=== PATIENT | female | born 1935 | race Caucasian/White ===

== ENCOUNTER 2017-10-24 07:04 | Day surgery (SDC) | payer MEDICARE ==
[2017-10-23 10:48] LABS: BASOPHILS % (AUTO) 0.3 % (0-1); EOSINOPHILS # (AUTO) 0.1 X10'3 (0-0.9); EOSINOPHILS % (AUTO) 2.6 % (0-6); HEMATOCRIT 38.1 % (35.0-45.0); HEMOGLOBIN 12.9 g/dl (12.0-16.0); LYMPHOCYTES # (AUTO) 1.6 X10'3 (1.1-4.8); LYMPHOCYTES % (AUTO) 28.5 % (21-51); MEAN CORPUSCULAR HGB CONC 33.8 % (33.0-36.5); MEAN CORPUSCULAR VOLUME 88.7 FL (78-98); MEAN PLATELET VOLUME 8.3 FL (7.4-10.4); MONOCYTES # (AUTO) 0.5 X10'3 (0-0.9); MONOCYTES % (AUTO) 8.1 % (2-12); NEUTROPHILS # (AUTO) 3.4 X10'3 (1.8-7.7); NEUTROPHILS % (AUTO) 60.5 % (42-75); PLATELET COUNT 206 X10'3 (140-440); RED BLOOD COUNT 4.29 X10'6 (4.20-5.60); RED CELL DISTRIBUTION WIDTH 13.9 % (11.5-14.5); WHITE BLOOD COUNT 5.6 X10'3 (4.5-11.0)
[2017-10-23 10:57] LABS: ALBUMIN 3.5 G/DL (3.4-5.0); ANION GAP 10 (8-16); BLOOD UREA NITROGEN 30 MG/DL (7-18); BUN/CREATININE RATIO 23.1 (6.6-38.0); CALCIUM 9.3 MG/DL (8.5-10.1); CHLORIDE 107 MMOL/L (99-107); GLUCOSE 102 MG/DL (70-104); PARTIAL THROMBOPLASTIN TIME 27 SECONDS (22-32); POTASSIUM 4.1 MMOL/L (3.5-5.1); SODIUM 142 MMOL/L (135-145); TOTAL CARBON DIOXIDE 25.4 MMOL/L (24-32); eGFR 39 ML/MIN
[~2017-10-24] VITALS: Ht 147.3 cm; Wt 65.5 kg
[2017-10-24] VITALS (13 sets, daily range): BP systolic 123–142; BP diastolic 41–69
[~2017-10-24 07:04] MED LIST: ALPR-624 PO; ASPI-83 PO; CYAN25006 SL; D3 PO; ESOM20CA PO; LOVA40TA2 PO; MAGN250T29 PO; OLME1TAB18 PO; SYN0.088T PO; TRAM50TA2 PO; TRIA1TAB5 PO
[2017-10-24] MEDS ORDERED: diphenhydrAMINE 25mg capsule PO PRN (07:45)
[2017-10-24] MEDS ORDERED: LORazepam 0.5 MG tablet PO PRN (07:45)
[2017-10-24] MEDS ORDERED: normal saline 1000ml 1,000 ML IV SCH (07:45)
[2017-10-24] MEDS ORDERED: CALCIUM PO (08:14)
[2017-10-24] MEDS ORDERED: CHOL10002 PO (08:14)
[2017-10-24] MEDS ORDERED: MAGN400C PO (08:14)
[2017-10-24] MEDS ORDERED: NAPR-56 PO (08:14)
[2017-10-24] MEDS ORDERED: LIDOCAINE PATCH 4% TD (08:21)
[2017-10-24] MEDS ORDERED: fentaNYL/PF 50MCG/1 ML 2ML syringe ONE (08:27)
[2017-10-24] MEDS ORDERED: iohexol 350MG/ML 100ml bottle IV ONE (08:27)
[2017-10-24] MEDS ORDERED: heparin 1,000unit/ml 10ml vial 10 ML ONE (08:27)
[2017-10-24] MEDS ORDERED: midazolam 2 mg/2 ml injection ONE (08:27)
[2017-10-24] MEDS ORDERED: iohexol 350 MG/ML 50ML vial IV ONE (08:27)
[2017-10-24] MEDS ORDERED: LIDOcaine 1%/PF (10mg/ml) 5ml vial ONE (08:27)
[2017-10-24] MEDS ORDERED: nitroGLYCERIN-Tridil 50MG/D5W 250 ML IV ONE (08:31)
[2017-10-24] MEDS ORDERED: LIDOcaine 1% (10mg/ml) 2ml vial ONE (09:12)
[2017-10-24] MEDS ORDERED: traMADol 50MG tablet PO PRN (12:05)
[2017-10-24] MEDS ORDERED: naproxen sodium 220mg tablet PO SCH (12:05)
[2017-10-24] MEDS ORDERED: sod bicarbonate 150mEq in D5W 1,150 ML IV ONE (12:15)
[2017-10-24 13:25] LABS: ISTAT Hct MIX 36 %PCV (35-48); ISTAT O2 SATURATION MIX VENOUS 62 % (60-80); ISTAT SOURCE MIX
[2017-10-24 13:25] LABS: ISTAT HGB ART 12.2 g/dl (12.0-16.0); ISTAT Hct ART 36 %PCV (35-48); ISTAT O2 SATURATION ARTERIAL 93 % (95-98); ISTAT SOURCE ART
== END 2017-10-24 18:00 | disposition home or self-care (01) ==
LOC: SSTAY O 07:04
PROVIDERS: ATTEND Internal Medicine Cardiovascular Disease
DX: I25.119 Atherosclerotic heart disease of native coronary artery with unspecified angina pectoris (principal); E03.9 Hypothyroidism, unspecified; E78.5 Hyperlipidemia, unspecified; I12.9 Hypertensive chronic kidney disease with stage 1 through stage 4 chronic kidney disease, or unspecified chronic kidney disease; N18.9 Chronic kidney disease, unspecified; K21.9 Gastro-esophageal reflux disease without esophagitis; Z78.0 Asymptomatic menopausal state; Z88.0 Allergy status to penicillin; Z90.710 Acquired absence of both cervix and uterus; Z87.891 Personal history of nicotine dependence; Z95.828 Presence of other vascular implants and grafts; M47.812 Spondylosis without myelopathy or radiculopathy, cervical region; M19.042 Primary osteoarthritis, left hand; M19.041 Primary osteoarthritis, right hand; Z90.89 Acquired absence of other organs; Z98.42 Cataract extraction status, left eye; Z98.41 Cataract extraction status, right eye; Z85.828 Personal history of other malignant neoplasm of skin; Z79.82 Long term (current) use of aspirin; Z98.890 Other specified postprocedural states; Z79.899 Other long term (current) drug therapy
CPT/HCPCS: 36415; 80048; 82803; 85014; 85025; 85610; 85730; 93460; 99152; 99153; A6257; C1760; C1769; C1894; J1644; J2001; J2250; J3010; J3490; J7030; Q0163; Q9967; A4620

== ENCOUNTER 2020-10-21 07:00 | Day surgery (SDC) | payer MEDICARE ==
[2020-10-13 12:42] LABS: BASOPHILS % (AUTO) 0.6 % (0-1); EOSINOPHILS # (AUTO) 0.2 X10'3 (0-0.9); EOSINOPHILS % (AUTO) 3.9 % (0-6); LYMPHOCYTES # (AUTO) 1.3 X10'3 (1.1-4.8); LYMPHOCYTES % (AUTO) 28.1 % (21-51); MEAN CORPUSCULAR HEMOGLOBIN 29.5 PG (27.0-31.0); MEAN CORPUSCULAR HGB CONC 32.9 g/dL (33.0-36.5); MEAN CORPUSCULAR VOLUME 89.6 FL (78-98); MEAN PLATELET VOLUME 8.5 FL (7.4-10.4); MONOCYTES # (AUTO) 0.6 X10'3 (0-0.9); MONOCYTES % (AUTO) 12.4 % (2-12); NEUTROPHILS # (AUTO) 2.6 X10'3 (1.8-7.7); PRE OP HEMATOCRIT 39.5 % (35.0-45.0); PRE OP PLATELET COUNT 167 X10'3 (140-440); RED CELL DISTRIBUTION WIDTH 14.7 % (11.5-14.5)
[2020-10-13 13:00] LABS: ALBUMIN 3.8 G/DL (3.4-5.0); ALKALINE PHOSPHATASE 59 IU/L (46-116); BLOOD UREA NITROGEN 27 MG/DL (7-18); BUN/CREATININE RATIO 19.3 (6.6-38.0); CALCIUM 9.2 MG/DL (8.5-10.1); CHLORIDE 109 MMOL/L (99-107); PRE OP ALT 26 U/L (30-65); PRE OP ANION GAP 8 (8-16); PRE OP AST 15 U/L (10-37); PRE OP BILIRUB, TOTAL 0.5 MG/DL (0.0-1.0); PRE OP GLUCOSE 96 MG/DL (70-104); PRE OP POTASSIUM 3.9 MMOL/L (3.4-5.1); PRE OP SODIUM 145 MMOL/L (135-145); TOTAL CARBON DIOXIDE 27.8 MMOL/L (24-32); TOTAL PROTEIN 7.5 G/DL (6.4-8.2); eGFR 36 ML/MIN
[~2020-10-21] VITALS: Ht 147.3 cm; Wt 65.8 kg
[2020-10-21] VITALS (13 sets, daily range): BP systolic 137–183; BP diastolic 65–91
[~2020-10-21 07:00] MED LIST changes: -ALPR-624 PO; +AMLO5TAB16 PO; +CHOL10002 PO; -CYAN25006 SL; -D3 PO; +DOCUMENT DATE & TIME OF BETA-BLOCKER PO ONE; -ESOM20CA PO; +HYDR-4069 PO; +HYDR25TA4 PO; +LEVO100T9 PO; -MAGN250T29 PO; +METO25TA6 PO; -OLME1TAB18 PO; +OMEP-50 PO; -SYN0.088T PO; -TRAM50TA2 PO; -TRIA1TAB5 PO; +VANCOMYCIN INJ 1000 MG in NORMAL SALINE 250ml IV.SOLN IV ONE; +clindamycin-Cleocin 900mg/D5W 50 ML IV ONE; +famotidine 20mg tablet PO ONE; +ringers solution, lacted 1,000 ML IV SCH
[2020-10-21] MEDS ORDERED: morphine 2 MG/ML inj. syringe IV PRN (07:50)
[2020-10-21] MEDS ORDERED: ondansetron/PF 4mg/2ml inj IV PRN (07:50)
[2020-10-21] MEDS ORDERED: meperidine/PF 25mg/ml syringe IV PRN ×2 (07:50)
[2020-10-21] MEDS ORDERED: acetaminophen 1,000mg/100ml IV 100 ML IV PRN (07:50)
[2020-10-21] MEDS ORDERED: proCHLORperazine 10 MG/2 ml inj IV PRN (07:50)
[2020-10-21] MEDS ORDERED: labetalol 20mg/4ml (5mg/ml) syringe IV PRN (07:50)
[2020-10-21] MEDS ORDERED: hydrALAZINE 20mg/ml inj. IV PRN (07:50)
[2020-10-21] MEDS ORDERED: ringers solution, lacted 1,000 ML IV SCH (07:50)
[2020-10-21] MEDS ORDERED: LIDOcaine 1% W/epiNEPHrine 1:100,000 20ml vial ONE (08:30)
[2020-10-21] MEDS ORDERED: LIDOcaine 1% 30ml preserv. free vial ONE (08:31)
[2020-10-21] MEDS ORDERED: BUPIVAcaine 0.5% inj/PF 30 ML ONE ×2 (08:31→08:35)
[2020-10-21] MEDS ORDERED: BUPIVAcaine/PF 7.5mg/ml (0.75%) 10ml vial ONE (08:35)
[2020-10-21] MEDS ORDERED: triamcinolone acetonide 40mg/ml inj ONE (08:35)
[2020-10-21] MEDS ORDERED: BUPIVAcaine/PF 2.5 mg/ml (0.25%) 30ml vial ONE (08:36)
[2020-10-21] MEDS ORDERED: morphine 4 MG/ML inj SYRINge ONE (08:46)
[2020-10-21] MEDS ORDERED: fentaNYL/PF 50MCG/1 ML 2ML syringe ONE (08:57)
[2020-10-21] MEDS ORDERED: midazolam 1 mg/ML 2ml injection ONE (09:16)
[2020-10-21] MEDS ORDERED: propofol inj 20 ML IV ONE (09:16)
--- NOTE | 2020-10-21 10:00 | NUR ---
Received from OR via [facility], accompanied by Anesthesiologist DR. MOYER and report given by Anesthesiologist. PATIENT [id number]&OX4, DENIES PAIN, V/S WNL, NEUROVASCULAR CHECKS INTACT-+PULSE TO RIGHT FOOT, HAS SENSATION AND MOVEMENT, SCD ON, 20G PIV LUE, DRSG TO RIGHT KNEE-CDI
[2020-10-21] MEDS ORDERED: albuterol 2.5 MG/3 ML nebule NEB ONE (11:00)
--- NOTE | 2020-10-21 11:04 | NUR ---
UPON STANDING TO GET DRESSED, PT BECAME NAUSEOUS-EMESIS, NOTED TO HAVE AUDIBLE WHEEZE WELL-RT TX ORDERED, PT USES OTC INHALERS AT HOME, PT RESTING BACK IN BED, ZOFRAN GIVEN, VS-STABLE
[2020-10-21] MEDS ORDERED: scopolamine 1.5mg patch.TD72 TD ONE (12:05)
--- NOTE | 2020-10-21 12:15 | NUR ---
STILL A BIT NAUSEATED, WANTS TO STAY IN WHEEL CHAIR, DSG DI, NC CHECK TO BILAT LEGS WNL, VS WNL,
--- NOTE | 2020-10-21 12:15 | NUR ---
TAKEN TO PAS UNIT TO CONTINUE D/C PLAN, SCOPALOMINE PATCH PLACED BEHIND RIGHT EAR, BOTH ZOFRAN AND COMPAZINE NOT EFFECTIVE, D/C INSTURCTIONS GIVEN TO PT, BEL[facility]
--- NOTE | 2020-10-21 13:00 | NUR ---
awake vs wnl, nausea decreased, dsg di, pt wants to go home. Disch insttr given and understood. home with vikas.
== END 2020-10-21 13:00 | disposition home or self-care (01) ==
LOC: SSTAY O 07:00 → PAS IN 07:03 → UNDOADMIN 07:03 → EDSTATUS 10:30 → SSTAY O 13:00 → UNDODISIN 13:00
PROVIDERS: ATTEND Orthopaedic Surgery
DX: S83.231A Complex tear of medial meniscus, current injury, right knee, initial encounter (principal); S83.281A Other tear of lateral meniscus, current injury, right knee, initial encounter; M94.261 Chondromalacia, right knee; E03.9 Hypothyroidism, unspecified; I12.9 Hypertensive chronic kidney disease with stage 1 through stage 4 chronic kidney disease, or unspecified chronic kidney disease; N18.30 Chronic kidney disease, stage 3 unspecified; M19.90 Unspecified osteoarthritis, unspecified site; Z87.891 Personal history of nicotine dependence; Z90.710 Acquired absence of both cervix and uterus; Z98.890 Other specified postprocedural states; Z88.0 Allergy status to penicillin; Z85.828 Personal history of other malignant neoplasm of skin; Z95.0 Presence of cardiac pacemaker; X58.XXXA Exposure to other specified factors, initial encounter; Y93.89 Activity, other specified; Y92.89 Other specified places as the place of occurrence of the external cause; Y99.8 Other external cause status
CPT/HCPCS: 29873; 29879; 29880; 36415; 76937; 80053; 85025; 93005; J0780; J2001; J2250; J2270; J2405; J2704; J3010; J3301; J3370; J3490; A4215; A4618; A6250; A6449; A7000; J7120